=== PATIENT | female | born 1970 | race Caucasian/White ===

== ENCOUNTER 2017-10-17 18:39 | Emergency (ER) | payer SELFPAY ==
[2017-10-17] MEDS ORDERED: NS 0.9% 1000 ML* 1,000 ML IV ONE (19:46)
[2017-10-17] MEDS ORDERED: Ondansetron INJ* 2 MG/ML VIAL IV ONE (19:46)
[2017-10-17] MEDS ORDERED: Ketorolac INJ* 30 MG/ML 1 ML VIAL IV PUSH ONE (19:47)
--- NOTE | 2017-10-17 19:51 | UC ---
Headache HPI - HPI Summary HPI Summary: This is dasia Nowak documenting for attending Joce Bentley MD. This patient is a 47 year old F presenting to [facility] [place] with a chief complaint of N/ V/D and over her headache since 3 days ago. The patient rates the pain 4/10 in severity. Patient reports having bloody diarrhea, everything hurts, neck pain , difficulty breathing, abdominal pain with diarrhea, fatigue, dizziness when standing up, and dehydration. Patient denies fever, chills, chest pain, cough, and ear pain. She started occasionally having heavy periods a few years ago. Starting last October, some of these heavy periods were accompanied by these symptoms. The symptoms always alleviated after 1-2 days, but this time she has had 3 days of symptoms (she had a heavy period 3 days ago). She took ibuprofen earlier today which alleviated the symptoms for half an hour, but the symptoms returned. The patient reports that any food or drinks with flavor gives her nausea. Patient has a PMHx of anemia which was last checked 1 year ago. - History Of Current Complaint Chief Complaint: UCHeadache Stated Complaint: HEADACHE, AND DIARRHEA Time Seen by Provider: 10/17/17 19:18 Hx Obtained From: Patient Hx Last Menstrual Period: NOW Onset/Duration: Sudden Onset, Lasting Days - Since 3 days ago Onset Of Symptoms: Sudden Initially Headache Was: Moderate Currently Pain Is: Moderate Pain Intensity: 4 Pain Scale Used: 0-10 Numeric Timing: Constant Associated Signs And Symptoms: Positive: Dizziness - when standing up, Fever - Denies fever, Neck Pain, Other (Noted In Comments) - Bloody diarrhea, "everything hurts," fatigue, difficulty breathing, abdominal pain with diarrhea , and dehydration. Denies chils, denies CP, denies cough, and denies facial pain. - Allergies/Home Medications Allergies/Adverse Reactions: Allergies Allergy/AdvReac Type Severity Reaction Status Date / Time No Known Allergies Allergy Verified 10/17/17 19:04 Home Medications: Home Medications Antihistamine* PRN 10/17/17 [History] Ibuprofen TAB* [Advil TAB*] 400 mg PO PRN 10/17/17 [History] PMH/Surg Hx/FS Hx/Imm Hx Endocrine History: Diabetes - Denies diabetes Cardiovascular History: Cardiac Disease - Denies CAD, Other - anemia Other Cardiovascular History: . - Surgical History Surgical History: None - Family History Known Family History: Positive: Cardiac Disease, Diabetes, Other - Stroke - Social History Occupation: Employed Full-time - [employer] Lives: With Family Alcohol Use: None Substance Use Type: None Smoking Status (MU): Never Smoked Tobacco Review of Systems Constitutional: Fever - Denies fever, Chills - Denies chills, Fatigue, Other - "everything hurts," dehydration ENT: Ear Ache - Denies ear pain, Other - Neck pain Respiratory: Cough - Denies cough, Other - Difficulty breathing Cardiovascular: Chest Pain - Denies CP Gastrointestinal: Abdominal Pain - with diarrhea, Vomiting, Diarrhea - Bloody diarrhea, Nausea Neurological: Headache, Other - Dizziness when standing up All Other Systems Reviewed And Are Negative: Yes Physical Exam - Summary Physical Exam Summary: General: Mildly ill-appearing Skin: warm, color reflects adequate perfusion, dry Head: normal Eyes: EOMI, TIESHA ENT: normal Neck: supple, nontender Respiratory: CTA, breath sounds present Cardiovascular: RRR Abdomen: soft, nontender Bowel: present Musculoskeletal: normal, strength/ROM intact Neurological: sensory/motor intact, A&O x3 Psychological: affect/mood appropriate Triage Information Reviewed: Yes Vital Signs: Initial Vital Signs Temp 98.5 F 10/17/17 18:57 Pulse 76 10/17/17 18:57 Resp 16 10/17/17 18:57 BP 188/113 10/17/17 18:57 Pulse Ox 100 10/17/17 18:57 Headache Course/Dx - Course Course Of Treatment: IMPROVED IN CLINIC. DISCUSSED GOING TO THE EMERGENCY DEPARTMENT FOR EVALUATION AND TREATMENT; THE PATIENT DECLINED AND PREFERED TO BE TREATED HERE IN CLINIC. UNABLE TO DRAW LABS HERE IN CLINIC; OUT PATIENT LAB SLIP GIVEN. F/U WITH PMD; GO TO ED IF WORSE. - Differential Dx/Diagnosis Provider Diagnoses: HEADACHE. HEAVY MENTRAL BLEEDING. DIARRHEA Discharge - Sign-Out/Discharge Documenting (check all that apply): Patient Departure - Discharge Plan Condition: Stable Disposition: HOME Patient Education Materials: Acute Headache (ED), Ectopic (DC), Menorrhagia (ED) Referrals: [facility] [place] [facility]IAN REFERRAL [Outside] Additional Instructions: FOLLOW UP WITH YOUR DOCTOR. GET YOUR LAB WORK DRAWN TOMORROW. GO TO THE EMERGENCY DEPARTMENT FOR ANY WORSENING OF YOUR CONDITION OR QUESTIONS OR CONCERNS. - Billing Disposition and Condition Condition: STABLE Disposition: Home
[2017-10-17 22:42] VITALS: BP 140/88
--- NOTE | 2017-10-18 18:02 | UC ---
- Progress Note Progress Note: CBC, CMP, and HIV reviewed. All WNL/negative. If symptoms persisting or worsening - needs eval in the ED as instructed at visit yesterday Discharge - Sign-Out/Discharge Documenting (check all that apply): Post-Discharge Follow Up - Discharge Plan Condition: Stable Disposition: HOME Prescriptions: Ondansetron ODT TAB* [Zofran 4 MG Odt TAB*] 4 mg PO Q6H PRN #10 tab.odt PRN Reason: Nausea Patient Education Materials: Ectopic (DC), Acute Headache (ED), Menorrhagia (ED) Referrals: [facility] [place] [facility]IAN REFERRAL [Outside] Additional Instructions: FOLLOW UP WITH YOUR DOCTOR. GET YOUR LAB WORK DRAWN TOMORROW. GO TO THE EMERGENCY DEPARTMENT FOR ANY WORSENING OF YOUR CONDITION OR QUESTIONS OR CONCERNS. - Billing Disposition and Condition Condition: STABLE Disposition: Home
--- NOTE | 2017-10-19 16:32 | UC ---
- Progress Note Progress Note: Preliminary urine culture shows greater than 100,000 cfu/ml Escherichia coli. Sensitivities report is still pending. Patient should be contacted regarding symptoms once the sensitivity reports returns and appropriate course of antibiotics for UTI provided if warranted. Discharge - Sign-Out/Discharge Documenting (check all that apply): Patient Departure - Discharge Plan Condition: Stable Disposition: HOME Prescriptions: Ondansetron ODT TAB* [Zofran 4 MG Odt TAB*] 4 mg PO Q6H PRN #10 tab.odt PRN Reason: Nausea Patient Education Materials: Ectopic (DC), Acute Headache (ED), Menorrhagia (ED) Referrals: [facility] [place] [facility]IAN REFERRAL [Outside] Additional Instructions: FOLLOW UP WITH YOUR DOCTOR. GET YOUR LAB WORK DRAWN TOMORROW. GO TO THE EMERGENCY DEPARTMENT FOR ANY WORSENING OF YOUR CONDITION OR QUESTIONS OR CONCERNS. - Billing Disposition and Condition Condition: STABLE Disposition: Home
== END 2017-10-17 22:44 | disposition home or self-care (01) ==
LOC: UCEAST 18:39
DX: R51 Headache (principal); N92.0 Excessive and frequent menstruation with regular cycle; R19.7 Diarrhea, unspecified; Z82.49 Family history of ischemic heart disease and other diseases of the circulatory system; Z83.3 Family history of diabetes mellitus; Z82.3 Family history of stroke
CPT/HCPCS: 81003; 87077; 87086; 87186; 96361; 96374; 96375; 99201; G0463; J1885; J2405

== ENCOUNTER 2017-11-12 14:56 | Emergency (ER) | payer MEDICAID ==
[2017-11-12 15:10] VITALS: BP 193/114
--- NOTE | 2017-11-12 15:44 | UC ---
Headache HPI - HPI Summary HPI Summary: GRADUAL ONSET OF FRONTAL/OCCIPITAL CARPENTER, PHOTOPHOBIA AND NAUSEA SINCE 10AM TODAY. 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 BP NOTED TO BE DANGEROUSLY ELEVATED ON ARRIVAL TO . PT STATES IS WAS SIMILARLY ELEVATED AT [facility] 2 DAYS AGO. IS NOT ON BP MEDS. - History Of Current Complaint Chief Complaint: Ricky Stated Complaint: HEADACHE,NAUSEA,DIARRHEA Time Seen by Provider: 11/12/17 15:31 Hx Obtained From: Patient Hx Last Menstrual Period: 6-8 wks ago Onset/Duration: Gradual Onset, Lasting Hours, Still Present Initially Headache Was: Moderate Currently Pain Is: Moderate Pain Intensity: 8 Pain Scale Used: 0-10 Numeric Timing: Constant Character: Dull, Throbbing Location of Headache: Diffuse Aggravating Factor(s): Bright Lights Allevating Factor(s): Nothing Associated Signs And Symptoms: Positive: Nausea - Allergies/Home Medications Allergies/Adverse Reactions: Allergies Allergy/AdvReac Type Severity Reaction Status Date / Time No Known Allergies Allergy Verified 11/12/17 15:10 PMH/Surg Hx/FS Hx/Imm Hx Neurological History: Migraine Other Neurological History: CHRONIC NOLEN'S PALSY SINCE ~AGE 21 - Surgical History Surgical History: None - Family History Known Family History: Positive: Cardiac Disease, Diabetes, Other - Stroke - Social History Alcohol Use: None Substance Use Type: None Smoking Status (MU): Never Smoked Tobacco Review of Systems Constitutional: Negative Respiratory: Negative Cardiovascular: Palpitations Gastrointestinal: Nausea Neurological: Headache All Other Systems Reviewed And Are Negative: Yes Physical Exam Triage Information Reviewed: Yes Appearance: Well-Nourished, Pain Distress - SEVERE Vital Signs: Initial Vital Signs Temp 98.7 F 11/12/17 15:05 Pulse 74 11/12/17 15:05 Resp 12 11/12/17 15:05 BP 193/114 11/12/17 15:05 Pulse Ox 100 11/12/17 15:05 Vital Signs Reviewed: Yes Eyes: Positive: Conjunctiva Clear, Other: - PERRL, EOMI ENT: Positive: Hearing grossly normal Neck: Positive: Supple Respiratory Exam: Normal Cardiovascular Exam: Normal Abdomen Description: Positive: Nontender, Soft Musculoskeletal: Positive: No Edema Neurological: Positive: Alert, Other: - LEFT FACIAL WEAKNESS Psychological: Positive: Normal Response To Family, Age Appropriate Behavior Skin: Negative: rashes Diagnostics - EKG Cardiac Rate: NL - 73BPM Cardiac Rhythm: Sinus: Normal Ectopy: None ST Segment: Normal Headache Course/Dx - Course Course Of Treatment: TO [facility] BY AMBULANCE - Differential Dx/Diagnosis Provider Diagnoses: HEADACHE IN SETTING OF HYPERTENSIVE CRISIS - Physician Notifications Discussed Patient Care With: Nestor Razo - TO [facility] BY AMBULANCE Time Discussed With Above Provider: 15:45 Instructed by Provider To: MD Will See In ED Discharge - Sign-Out/Discharge Documenting (check all that apply): Patient Departure All imaging exams completed and their final reports reviewed: No Studies - Discharge Plan Condition: Stable Disposition: TRANS HIGHER LVL OF CARE FAC Referrals: No Primary Care Phys,NOPCP [Primary Care Provider] - - Billing Disposition and Condition Condition: STABLE Disposition: Trans Higher Lvl of Care Fac
[2017-11-12] MEDS ORDERED: Ondansetron INJ* 2 MG/ML VIAL IV ONE (15:53)
[2017-11-12] MEDS ORDERED: Morphine VIAL* 10 MG/ML 1 ML VIAL IV PRN (15:54)
[2017-11-12] MEDS ORDERED: NS 0.9% 1000 ML* 1,000 ML IV SCH (16:00)
== END 2017-11-12 16:15 | disposition short-term general hospital (02) ==
LOC: UCEAST 14:56
DX: R51 Headache (principal); I16.9 Hypertensive crisis, unspecified; H53.149 Visual discomfort, unspecified; R19.7 Diarrhea, unspecified; G51.0 Bell's palsy
CPT/HCPCS: 93005; 96374; 96375; 99213; G0463; J2270; J2405

== ENCOUNTER 2017-11-12 16:29 | Emergency (ER) | payer MEDICAID ==
[2017-11-12] MEDS ORDERED: diPHENhydraMINE IV* 50 MG/ML 1 ml VIAL (BENADRYL) IV ONE (17:16)
[2017-11-12] MEDS ORDERED: NS 0.9% 1000 ML* 1,000 ML IV ONE (17:16)
--- NOTE | 2017-11-12 17:16 | ED ---
Headache - HPI Summary HPI Summary: The pt is a 47 y/o female with a MHx of migraines BIBA to [facility] c/o a CARPENTER since 10:00 today morning. She measured her BP at [employer] and it reached 180 at the highest. The sharp pain rated 4/10 in severity, is aggravated by light and sound. She notes nausea, L upper CP, palpitations, and photophobia but denies SOB, and ear pain. The pt took Ibuprofen, morphine 2mg, Zofran 4mg en route. She also reports a hx of [place] Palsy (weakness of the L side), anemia and undedicated HTN. - History Of Current Complaint Chief Complaint: EDHypertension Stated Complaint: HEADACHE/HIGH BP Time Seen by Provider: 11/12/17 17:08 Hx Obtained From: Patient Hx Last Menstrual Period: 6-8 wks ago Onset/Duration: Sudden Onset, Still Present Currently Pain Is: Current Pain Scale(0-10)= - 4/10 Character: Sharp Location of Headache: Diffuse Aggravating Factor: Bright Lights, Other - Loud noises Allevating Factors: Nothing Associated Signs And Symptoms: Negative - SOB, and ear pain, Nausea, Other ( Noted In Comments) - Positive: L upper CP, palpitations, and photophobia - Allergies/Home Medications Allergies/Adverse Reactions: Allergies Allergy/AdvReac Type Severity Reaction Status Date / Time No Known Allergies Allergy Verified 11/12/17 15:10 Home Medications: Home Medications NK [No Home Medications Reported] 11/12/17 [History Confirmed 11/12/17] PMH/Surg Hx/FS Hx/Imm Hx Previously Healthy: No Endocrine/Hematology History: Reports: Hx Anemia Cardiovascular History: Reports: Hx Hypertension - Unmedicated Neurological History: Reports: Hx Migraine, 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 - Cancer History Cancer Type, Location and Year: None - Surgical History Surgery Procedure, Year, and Place: None - Immunization History Date of Tetanus Vaccine: < 10 years Immunizations Up to Date: Yes Infectious Disease History: No Infectious Disease History: Denies: Traveled Outside the [place] in Last 30 Days - Family History Known Family History: Positive: Cardiac Disease, Diabetes, Other - Stroke - Social History Occupation: Employed Full-time Lives: With Family Alcohol Use: None Substance Use Type: Reports: None Smoking Status (MU): Never Smoked Tobacco Review of Systems Positive: Photophobia Negative: Ear Ache Positive: Palpitations, Chest Pain - L upper side Negative: Shortness Of Breath Positive: Nausea Positive: Headache All Other Systems Reviewed And Are Negative: Yes Physical Exam - Summary Physical Exam Summary: Appearance: Well appearing, no pain distress Skin: warm, dry, reflects adequate perfusion Head/face: normal Eyes: EOMI, TIESHA ENT: normal Neck: supple, non-tender Respiratory: CTA, breath sounds present Cardiovascular: RRR, pulses symmetrical Abdomen: non-tender, soft Bowel: present Musculoskeletal: normal, strength/ROM intact Neuro: normal, sensory motor intact, A&Ox3 GCS: 15 Triage Information Reviewed: Yes Vital Signs On Initial Exam: Initial Vitals Temp Pulse Resp BP Pulse Ox 99.1 F 72 18 203/111 100 11/12/17 16:39 11/12/17 16:39 11/12/17 16:39 11/12/17 16:39 11/12/17 16:39 Vital Signs Reviewed: Yes Diagnostics - Vital Signs Vital Signs Temp Pulse Resp BP Pulse Ox 11/12/17 16:39 99.1 F 72 18 203/111 100 - Laboratory Result Diagrams: 11/12/17 17:58 11/12/17 17:58 Lab Statement: Any lab studies that have been ordered have been reviewed, and results considered in the medical decision making process. - CT Brain CT CT Interpretation Completed By: Radiologist - IMPRESSION: #. Negative unenhanced head CT. The ED physician reviewed this radiology report. Headache Course/Dx - Course Course Of Treatment: A 47 year-old F presents to the ED with a CC of a CARPENTER since 10:00 today morning. She measured her BP at [employer] and it reached 180 at the highest. The sharp pain rated 4/10 in severity, is aggravated by light and sound. She notes nausea, L upper CP, palpitations, and photophobia but denies SOB, and ear pain. The pt took Ibuprofen, morphine 2mg, Zofran 4mg en route. She also reports a hx of [place] Palsy (weakness of the L side), anemia and undedicated HTN. A physical exam is unremarkable. A brain CT in unremarkable In the ED course, pt was given Diphenhydramine 50mh IV, Ns 0.9% 1000ml and Metoclopramide 10mg IV which improved the symptoms. Patient will be discharged with a final Dx of CARPENTER and HTN. The pt is agreeable with this plan. Allergies noted. - Diagnoses Differential Diagnosis/HQI/PQRI: Migraine, Sinus Headache, Tension Headache Provider Diagnoses: Headache, Hypertension Discharge - Sign-Out/Discharge Documenting (check all that apply): Patient Departure - DC - Discharge Plan Condition: Improved Disposition: HOME Referrals: No Primary Care Phys,NOPCP [Primary Care Provider] - [facility] [Outside] Additional Instructions: Follow up with PCP in 3 days. Return to ED for any new or worsening symptoms - Billing Disposition and Condition Condition: IMPROVED Disposition: Home - Attestation Statements Document Initiated by Scribe: Yes Documenting Scribe: Kaci Rahman Provider For Whom Nereyda is Documenting (Include Credential): Dr. Nestro Razo MD Scribe Attestation: Kaci Rose , scribed for Dr. Nestor Razo MD on 11/12/17 at 1844. Scribe Documentation Reviewed: Yes Provider Attestation: The documentation as recorded by the Kaci forman accurately reflects the service I personally performed and the decisions made by me, Dr. Nestor Razo MD
[2017-11-12] MEDS ORDERED: Metoclopramide IV* 5 MG/ML 2 ML VIAL IV ONE (17:22)
--- NOTE | 2017-11-12 17:54 | RAD ---
Indication: Headache with progression since this morning. Reported elevated blood pressure. Comparison: No relevant prior exams available on the [facility] for comparison. Technique: Noncontrast CT vertex of skull through foramen magnum. Report: The sulci, ventricles, and basal cisterns are normal for age. Santos matter white matter differentiation is preserved without evidence for edema. No intra or extra axial hemorrhage, mass, or fluid collection detected. Unremarkable visualized orbital contents. Unremarkable calvarium and skull base. Unremarkable scalp. The visualized paranasal sinuses and mastoid air spaces are clear. IMPRESSION: #. Negative unenhanced head CT.
[2017-11-12 18:05] LABS: ABS Basophils 0.1 10^3/ul (0-0.2); ABS Eosinophils 0.1 10^3/ul (0-0.6); ABS Lymphocytes 1.5 10^3/ul (1.0-4.8); ABS Monocytes 0.6 10^3/ul (0-0.8); ABS Neutrophils 5.7 10^3/ul (1.5-7.7); ABS Nucleated RBC 0 10^3/ul; Eosinophil % 0.8 % (0-6); Hematocrit 36 % (35-47); Hemoglobin 11.5 g/dl (12.0-16.0); Lymphocyte % 19.2 % (25-47); Mean Corpuscular HGB Conc 32 g/dl (31-36); Mean Corpuscular Hemoglobin 25 pg (27-31); Mean Corpuscular Volume 80 fL (80-97); Mean Platelet Volume 12.6 um3 (7.4-10.4); Nucleated Red Blood Cells % 0; Platelet Count 165 10^3/ul (150-450); Red Blood Count 4.55 10^6/ul (4.00-5.40); Red Cell Distribution Width 17 % (10.5-15)
[2017-11-12 18:12] LABS: INR 0.9 (0.77-1.02)
[2017-11-12] MEDS ORDERED: hydrALAZINE IV* 20 MG/ML VIAL IV SLOW PU ONE (18:43)
[2017-11-12] MEDS ORDERED: Lisinopril TAB* 5 MG PO ONE (19:01)
--- NOTE | 2017-11-12 19:38 | ED ---
Progress - Progress Note Progress Note: 1908 - EKG results came back normal. 1999 - Pt's blood pressure is stable, pt will be discharged home. - EKG/XRAY/CT EKG: NSR - 67bpm Course/Dx - Diagnoses Provider Diagnoses: Migraine headache Discharge - Sign-Out/Discharge Documenting (check all that apply): Patient Departure, Receiving Sign-Out Receiving patient FROM: Nestor Razo - Discharge Plan Condition: Stable Disposition: HOME Referrals: Care [facility] [Outside] No Primary Care Phys,NOPCP [Primary Care Provider] - Additional Instructions: Follow up with PCP in 3 days. Return to ED for any new or worsening symptoms - Attestation Statements Document Initiated by Scribe: Yes Documenting Scribe: Kelli Quach Provider For Whom Scribe is Documenting (Include Credential): Bradley Avila MD. Scribe Attestation: Kelli Rose, scribed for Bradley Avila MD. on 11/12/17 at 2210.
[2017-11-12] MEDS ORDERED: Ondansetron ODT TAB* 4 MG PO ONE (21:59)
--- NOTE | 2017-11-12 22:06 | ED ---
Progress - Progress Note Progress Note: 1908 - EKG results came back normal. 1999 - Pt's blood pressure is stable, pt will be discharged home. - EKG/XRAY/CT EKG: NSR - 67bpm Re-Evaluation - Re-Evaluation First Eval Re-Evaluation Time: 22:07 Change: Improved - This is a 47-year-old woman who came in today with severe headache associated with marked elevation of blood pressure. She was initially treated by Dr. Razo and signed out to me. In the interim, her blood pressure has come down with IV and oral medication. Her headache has been controlled although she is still complaining of some nausea. I ordered some medication for that. I went through her history in some detail with her and she appears to be suffering from migraine headaches which tend to occur with her., Characterized by gradual onset of severe frontal and temporal pain bilaterally associated with nausea and vomiting. Sometimes she does see funny lights with this. She also sometimes gets diarrhea with it. I think she might benefit from a trial of Imitrex and explained that she should take that at the very first onset of symptoms. With respect to her blood pressure and I can start her on an antihypertensive as I suspect this blood pressure was reactive to her symptoms; she says sometimes she does check her blood pressure in the [place] and it tends to run in the 04/13/40 systolic range. Course/Dx - Course Course Of Treatment: A 47 year-old F presents to the ED with a CC of a CARPENTER since 10:00 today morning. She measured her BP at [employer] and it reached 180 at the highest. The sharp pain rated 4/10 in severity, is aggravated by light and sound. She notes nausea, L upper CP, palpitations, and photophobia but denies SOB, and ear pain. The pt took Ibuprofen, morphine 2mg, Zofran 4mg en route. She also reports a hx of [place] Palsy (weakness of the L side), anemia and undedicated HTN. A physical exam is unremarkable. A brain CT in unremarkable In the ED course, pt was given Diphenhydramine 50mh IV, Ns 0.9% 1000ml and Metoclopramide 10mg IV which improved the symptoms. Patient will be discharged with a final Dx of CARPENTER and HTN. The pt is agreeable with this plan. Allergies noted. - Diagnoses Provider Diagnoses: Migraine headache Discharge - Sign-Out/Discharge Documenting (check all that apply): Patient Departure - Discharge Plan Condition: Improved Disposition: HOME Prescriptions: Prochlorperazine TAB* [Compazine Tab*] 10 mg PO Q6H PRN #12 tab PRN Reason: Nausea SUMAtriptan TAB* [Imitrex TAB*] 50 mg PO SEE INSTRUCTIONS PRN #8 tab PRN Reason: Headache Patient Education Materials: Migraine Headache (ED) Referrals: Care [facility] [Outside] No Primary Care Phys,NOPCP [Primary Care Provider] - Additional Instructions: Follow up with PCP in 3 days. Return to ED for any new or worsening symptoms - Billing Disposition and Condition Condition: IMPROVED Disposition: Home - Attestation Statements Document Initiated by Nereyda: Liliya
[2017-11-12 22:31] VITALS: BP 160/81
== END 2017-11-12 22:29 | disposition home or self-care (01) ==
LOC: ED 16:29
DX: R51 Headache (principal); I10 Essential (primary) hypertension; Z86.69 Personal history of other diseases of the nervous system and sense organs; Z86.2 Personal history of diseases of the blood and blood-forming organs and certain disorders involving the immune mechanism
CPT/HCPCS: 36415; 70450; 80053; 84484; 84702; 85025; 85610; 85730; 93005; 96361; 96374; 96375; 99284; A9270-GY; J0360; J1200; J2765

== ENCOUNTER 2018-01-07 18:36 | Emergency (ER) | payer OTHER ==
[2018-01-07 18:48] VITALS: BP 151/89
[2018-01-07] MEDS ORDERED: Aspirin 81 mg CHEW TAB* 81 MG TAB.CHEW PO ONE (19:05)
--- NOTE | 2018-01-07 19:20 | UC ---
Cardiac HPI - HPI Summary HPI Summary: had chest and left arm discomfort a few days ago seen pcp ---our patient stress test ordered--and patient advised should sx return to "get checked out"--pain comes on when standing and working goes away with rest---never feel SOB or nauseated---currently has burning in left upper arm - History of Current Complaint Chief Complaint: UCChestPain Stated Complaint: CHEST PAIN Time Seen by Provider: 01/07/18 18:58 Hx Obtained From: Patient Hx Last Menstrual Period: october irregular unkown why Onset/Duration: Sudden Onset Timing: Constant Pain Intensity: 6 Chest Pain Location: Left Lateral - and left upper arm Character: Burning Aggravating Factor(s): Exertion Alleviating Factor(s): Rest Associated Signs & Symptoms: Positive: Negative - Allergy/Home Medications Allergies/Adverse Reactions: Allergies Allergy/AdvReac Type Severity Reaction Status Date / Time No Known Allergies Allergy Verified 11/12/17 15:10 PMH/Surg Hx/FS Hx/Imm Hx Previously Healthy: No Cardiovascular History: Hypertension - Surgical History Surgical History: None Surgery Procedure, Year, and Place: None - Family History Known Family History: Positive: Cardiac Disease, Diabetes, Other - Stroke - Social History Occupation: Employed Full-time Lives: With Family Alcohol Use: Rare Substance Use Type: None Smoking Status (MU): Never Smoked Tobacco Household Exposure Type: Cigarettes Review of Systems Constitutional: Negative Skin: Negative Eyes: Negative ENT: Negative Respiratory: Negative Cardiovascular: Chest Pain - and left upper arm burning Gastrointestinal: Negative Genitourinary: Negative Motor: Negative Neurovascular: Negative Musculoskeletal: Negative Neurological: Negative Psychological: Negative Is Patient Immunocompromised?: No All Other Systems Reviewed And Are Negative: Yes Physical Exam Triage Information Reviewed: Yes Appearance: Well-Appearing, No Pain Distress, Well-Nourished Vital Signs: Initial Vital Signs Temp 98.2 F 01/07/18 18:40 Pulse 70 01/07/18 18:40 Resp 18 01/07/18 18:40 BP 151/89 01/07/18 18:40 Pulse Ox 100 01/07/18 18:40 Vital Signs Reviewed: Yes Eye Exam: Normal Eyes: Positive: Conjunctiva Clear ENT Exam: Normal ENT: Positive: Normal ENT inspection, Hearing grossly normal. Negative: Trismus , Muffled voice, Hoarse voice Dental Exam: Normal Neck exam: Normal Neck: Positive: Supple, Nontender, No Lymphadenopathy Respiratory Exam: Normal Respiratory: Positive: Chest non-tender, Lungs clear, Normal breath sounds, No respiratory distress, No accessory muscle use Cardiovascular Exam: Normal Cardiovascular: Positive: RRR, No Murmur, Pulses Normal, Brisk Capillary Refill Musculoskeletal Exam: Normal Musculoskeletal: Positive: Strength Intact, ROM Intact, No Edema Neurological Exam: Normal Neurological: Positive: Alert, Muscle Tone Normal Psychological Exam: Normal Skin Exam: Normal Diagnostics - EKG Cardiac Rate: NL Cardiac Rhythm: Sinus: Normal Ectopy: None ST Segment: Normal Summary of EKG Findings: sr rate [address] changes - Assessment/Plan Course Of Treatment: refused EMS---4-81 mg asa to chew given patient driven to hospital by male patner - Differential Diagnoses - Chest Pain Differential Diagnosis/HQI/PQRI: Angina - Clinical Impression Provider Diagnoses: Chest pain Discharge - Sign-Out/Discharge Documenting (check all that apply): Patient Departure All imaging exams completed and their final reports reviewed: No Studies - Discharge Plan Condition: Guarded Disposition: HOME-RECOMMEND TO ED Patient Education Materials: Chest Pain (ED) Referrals: Mari Ji MD [Primary Care Provider] - - Billing Disposition and Condition Condition: GUARDED Disposition: Home-Recommend to ED
== END 2018-01-07 19:15 | disposition home health service (06) ==
LOC: UCEAST 18:36
DX: R07.9 Chest pain, unspecified (principal); I10 Essential (primary) hypertension
CPT/HCPCS: 93005; 99212; A9270-GY; G0463

== ENCOUNTER → 2018-02-24 05:46 | Day surgery (SDC) | payer OTHER ==
[~2018-02-24 05:46] MED LIST: Buffered Lidocaine 0.9% SYRIN* 5 ML/SYR SYRINGE INTRADERM ONE; Dexamethasone IV* 4 MG/ML 1 ML (4 MG) IV SLOW PU ONE; Dexamethasone IV* 4 MG/ML 1 ML (4 MG) ONE; DiMENhydriNATE IV* 50 MG/ML VIAL IV PUSH PRN; EPHEDrine (Pressors)* 50 MG/ML VIAL ONE; Famotidine IV* 10 MG/ML 2 ML (20 mg) IV ONE; Famotidine IV* 10 MG/ML 2 ML (20 mg) ONE; Ketorolac INJ* 30 MG/ML 1 ML VIAL ONE; Lactated Ringers 1000 ML Bag* 1,000 ML IV SCH; Lidocaine 2% PF * 5 ML VIAL ONE; Midazolam* 1 MG/ML 5 ML VIAL (5 MG) ONE; Naloxone* 0.4 MG/ML 1 ML VIAL IV PRN; Ondansetron INJ* 2 MG/ML VIAL IV PRN; Ondansetron INJ* 2 MG/ML VIAL ONE; Propofol* 10 MG/ML 20 ML BTL ONE; Silver Nitrate/Potassium Nitr* 1 EA STICK ONE; ceFAZolin 2 GM PREMIX in ORs 2 GM/50 ML BAG IVPB ONE; fentaNYL* 50 MCG/ML 2 ML VIAL (100 MCG VIAL) IV PRN; fentaNYL* 50 MCG/ML 5 ML VIAL (250 MCG VIAL) ONE; oxyCODONE/Acetamin 5/325 MG* TAB PO PRN
[2018-02-24 06:58] LABS: Hematocrit 41 % (35-47); Hemoglobin 13.4 g/dl (12.0-16.0); Mean Corpuscular HGB Conc 33 g/dl (31-36); Mean Corpuscular Hemoglobin 28 pg (27-31); Mean Corpuscular Volume 85 fL (80-97); Mean Platelet Volume 12.8 fL (7.4-10.4); Platelet Count 172 10^3/ul (150-450); Red Blood Count 4.74 10^6/ul (4.00-5.40); Red Cell Distribution Width 16 % (10.5-15); White Blood Count 6.1 10^3/ul (3.5-10.8)
[2018-02-24 10:40] VITALS: BP 126/78
--- NOTE | 2018-02-24 22:04 | OP ---
CC: Dr. Pocne, [facility].* DATE OF OPERATION: 02/24/18 - [facility] DATE OF : 72 SURGEON: Dr. Ponce. ANESTHESIOLOGIST: Dr. Tubbs. ANESTHESIA: General endotracheal anesthesia. PRE-OP DIAGNOSES: 1. Irregular vaginal bleeding. 2. Menorrhagia. 3. Thickened endometrium on ultrasound. 4. Nabothian cyst on cervix. POST-OP DIAGNOSES: 1. Irregular vaginal bleeding. 2. Menorrhagia. 3. Second endometrium on ultrasound. 4. Nabothian cyst on cervix. OPERATIVE PROCEDURE: Dilation, hysteroscopy, MyoSure polypectomy, curettage, cauterization of nabothian cyst. ESTIMATED BLOOD LOSS: Minimal, less than 20 cc. SPECIMEN: Endometrial polyps and endometrial curettings. FLUIDS: Per Anesthesia. Deficit 220 cc. FINDINGS: Small anteverted uterus, 1 cm nabothian cyst just inside the external os deviates the endocervical canal slightly to the left. Uterus sounds to 7. There were two small anterior wall polyps. There was otherwise atrophic-appearing endometrium. Adnexal masses were not palpated. Both ostia were visualized. COMPLICATIONS: None. COUNTS: Sponge, lap, and needle counts were correct x2. The patient was brought to recovery room awake and in stable condition. DESCRIPTION OF PROCEDURE: The patient was brought to the operating room. When general anesthesia was found to be adequate, the patient was prepped and draped in the usual sterile fashion in the dorsal lithotomy position. Exam under anesthesia was performed with the above findings noted. The weighted speculum was placed in the vagina. The anterior lip of the cervix was grasped with a single-tooth tenaculum and the cervix was gently and easily dilated with the graduated Hegar dilators. The MyoSure scope was introduced with the above findings noted. The MyoSure light was used to remove two polyps from the anterior uterine wall. When they were removed, no further polyps were seen. Endometrial curettage was performed. The nabothian cyst was cauterized with the Bovie in an attempt to make it smaller. All instruments removed from the vagina. The patient tolerated the procedure well and was brought to the recovery room awake and in stable condition. [id number]/[facility] #: [id number] [facility]
== END | disposition home or self-care (01) ==
LOC: OR 05:46
PROVIDERS: ATTEND Obstetrics & Gynecology
DX: N92.1 Excessive and frequent menstruation with irregular cycle (principal); N84.1 Polyp of cervix uteri; N84.0 Polyp of corpus uteri; I10 Essential (primary) hypertension; G51.0 Bell's palsy
CPT/HCPCS: 36415; 81025; 85027; 86850; 86900; 86901; 88305; A9270-GY; J0690; J1100; J1885; J2250; J2405; J2704; J3010

== ENCOUNTER 2018-08-02 15:54 | Observation (INO) | payer OTHER ==
[2018-08-02 18:28] LABS: ABS Basophils 0.1 10^3/ul (0-0.2); ABS Eosinophils 0.1 10^3/ul (0-0.6); ABS Lymphocytes 2.2 10^3/ul (1.0-4.8); ABS Monocytes 0.9 10^3/ul (0-0.8); ABS Neutrophils 5.6 10^3/ul (1.5-7.7); Eosinophil % 1.7 %; Hematocrit 46 % (35-47); Hemoglobin 15.3 g/dL (12.0-16.0); Lymphocyte % 24.7 %; Mean Corpuscular HGB Conc 34 g/dL (31-36); Mean Corpuscular Hemoglobin 30 pg (27-31); Mean Corpuscular Volume 89 fL (80-97); Mean Platelet Volume 11.6 fL (7.4-10.4); Nucleated Red Blood Cells % 0.1; Platelet Count 196 10^3/uL (150-450); Red Blood Count 5.14 10^6 /uL (3.70-4.87); Red Cell Distribution Width 14 % (10.5-15); White Blood Count 8.8 10^3/uL (3.5-10.8)
[2018-08-02 18:48] LABS: ALT 38 U/L (7-52); AST 24 U/L (13-39); Albumin 4.3 g/dL (3.2-5.2); Albumin/Globulin Ratio 1.3 (1-3); Alkaline Phosphatase 63 U/L (34-104); Anion Gap 8 mmol/L (2-11); Blood Urea Nitrogen 16 mg/dL (6-24); C Reactive Protein 1.73 mg/L (<8.01); CO2 Carbon Dioxide 25 mmol/L (22-32); Calcium 9.6 mg/dL (8.6-10.3); Chloride 104 mmol/L (101-111); EGFR African American 87.9 (>60); EGFR Non-African American 72.7 (>60); Globulin 3.4 g/dL (2-4); Glucose 86 mg/dL (70-100); Potassium 4.4 mmol/L (3.5-5.0); Sodium 137 mmol/L (135-145); Total Protein 7.7 g/dL (6.4-8.9)
[2018-08-02 18:52] LABS: HCG Pregnancy < 0.60 mIU/mL
[2018-08-02 19:49] LABS: Urine Appearance Cloudy; Urine Bacteria Absent (Absent); Urine Bilirubin Negative (Negative); Urine Blood Negative (Negative); Urine Color Yellow; Urine Glucose Negative (Negative); Urine Ketones Negative (Negative); Urine Nitrite Negative (Negative); Urine Protein Negative (Negative); Urine Red Blood Cell Trace(0-2/hpf) (Absent); Urine Specific Gravity 1.008 (1.010-1.030); Urine Squamous Epithelial Cell Present (Absent); Urine Urobilinogen Negative (Negative); Urine White Blood Cell Trace(0-5/hpf) (Absent)
--- NOTE | 2018-08-02 20:15 | ED ---
Abdominal Pain/Female - HPI Summary HPI Summary: 48-year-old female presents with complaints of lower mid abdominal and right lower quadrant "burning" for the past 2 days. States she was seen by her primary care provider earlier today who recommended that she be seen in the emergency room for further evaluation. Describes pain as constant. Denies aggravating or alleviating factors. Associated with some mild nausea. She reports she had surgery for a cyst removal from her uterus in January 2018 and had some similar discomfort following that surgery. States she has an appointment with her FISH AND WILDLIFE TECHNICIAN next week for follow-up. Patient also notes some dysuria, frequency, and urgency. States has not had her period since her surgery in January. Denies fever, chills, vomiting, diarrhea, vaginal discharge , or dyspareunia. - History of Current Complaint Chief Complaint: EDAbdPain Stated Complaint: ABD PAIN PER PT Time Seen by Provider: 08/02/18 17:47 Hx Obtained From: Patient Hx Last Menstrual Period: october irregular unkown why Pain Intensity: 6 Allergies/Adverse Reactions: Allergies Allergy/AdvReac Type Severity Reaction Status Date / Time No Known Allergies Allergy Verified 02/24/18 06:22 PMH/Surg Hx/FS Hx/Imm Hx Endocrine/Hematology History: Reports: Hx Anemia Denies: Hx Diabetes, Hx Thyroid Disease Cardiovascular History: Reports: Hx Hypertension - Unmedicated , Other Cardiovascular Problems/Disorders - shingles 3 yrs ago, left sided nerve damage Respiratory History: Denies: Hx Asthma, Hx Chronic Obstructive Pulmonary Disease (COPD), Other Respiratory Problems/Disorders GI History: Reports: Hx Gastroesophageal Reflux Disease - and gastritis, Hx Irritable Bowel Denies: Hx Ulcer, Other GI Disorders Musculoskeletal History: Reports: 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 Denies: Other Musculoskeletal History Sensory History: Denies: Hx Contacts or Glasses, Hx Hearing Aid Opthamlomology History: Denies: Hx Contacts or Glasses Neurological History: Reports: Hx Headaches, Hx Migraine, Hx Nerve Disease, 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 Psychiatric History: Reports: Hx Anxiety - after , Hx Depression - in the past - Cancer History Cancer Type, Location and Year: None - Surgical History Surgery Procedure, Year, and Place: None Hx Anesthesia Reactions: No - Immunization History Date of Tetanus Vaccine: < 10 years Infectious Disease History: No Infectious Disease History: Denies: Hx Hepatitis, Hx Human Immunodeficiency Virus (HIV), Traveled Outside the [place] in Last 30 Days - Family History Known Family History: Positive: Cardiac Disease, Diabetes, Other - Stroke - Social History Occupation: Employed Full-time Lives: With Family Alcohol Use: Rare Substance Use Type: Reports: None Smoking Status (MU): Never Smoked Tobacco Review of Systems Negative: Fever, Chills Cardiovascular: Negative Respiratory: Negative Positive: Abdominal Pain, Nausea. Negative: Vomiting, Diarrhea Positive: dysuria, frequency, urgency. Negative: discharge, flank pain, hematuria Musculoskeletal: Negative Skin: Negative Neurological: Negative All Other Systems Reviewed And Are Negative: No Physical Exam - Summary Physical Exam Summary: GENERAL APPEARANCE: Well developed, well nourished, alert and cooperative, and appears to be in no acute distress. EYES: Conjunctiva clear. No drainage. PERRL, EOM intact. Vision is grossly intact. EARS: External auditory canals and tympanic membranes clear, hearing grossly intact. NOSE: No nasal discharge. THROAT: Pharynx normal No tonsilar inflammation, swelling, exudate, or lesions. Uvula midline. Oral cavity normal. Teeth and gingiva in good general condition. NECK: Neck supple, non-tender without lymphadenopathy. CARDIAC: Normal S1 and S2. No S3, S4 or murmurs. Rhythm is regular. There is no peripheral edema, cyanosis or pallor. Extremities are warm and well perfused. Capillary refill is less than 2 seconds. Peripheral pulses intact. LUNGS: Clear to auscultation without rales, rhonchi, wheezing or diminished breath sounds. ABDOMEN: Positive bowel sounds. Soft, nondistended. Mild suprapubic and RLQ tenderness without guarding or rebound. No masses or hepatosplenomegally. No CVA tenderness. MUSKULOSKELETAL: ROM intact to all extremities. No joint erythema or tenderness. Normal muscular development. Normal gait. SKIN: Skin normal color, texture and turgor with no lesions or eruptions. Triage Information Reviewed: Yes Vital Signs On Initial Exam: Initial Vitals Temp Pulse Resp BP Pulse Ox 97.8 F 75 18 147/94 100 08/02/18 15:57 08/02/18 15:57 08/02/18 15:57 08/02/18 15:57 08/02/18 15:57 Vital Signs Reviewed: Yes Diagnostics - Vital Signs Vital Signs Temp Pulse Resp BP Pulse Ox 08/02/18 15:57 97.8 F 75 18 147/94 100 - Laboratory Lab Results: Lab Results 08/02/18 08/02/18 08/02/18 Range/Units 18:10 18:10 18:10 WBC 8.8 (3.5-10.8) 10^3/uL RBC 5.14 H (3.70-4.87) 10^6 /uL Hgb 15.3 (12.0-16.0) g/dL Hct 46 (35-47) % MCV 89 (80-97) fL MCH 30 (27-31) pg MCHC 34 (31-36) g/dL RDW 14 (10.5-15) % Plt Count 196 (150-450) 10^3/uL MPV 11.6 H (7.4-10.4) fL Neut % (Auto) 62.9 % Lymph % (Auto) 24.7 % Crawford % (Auto) 10.0 % Eos % (Auto) 1.7 % Baso % (Auto) 0.7 % Absolute Neuts (auto) 5.6 (1.5-7.7) 10^3/ul Absolute Lymphs (auto) 2.2 (1.0-4.8) 10^3/ul Absolute Monos (auto) 0.9 H (0-0.8) 10^3/ul Absolute Eos (auto) 0.1 (0-0.6) 10^3/ul Absolute Basos (auto) 0.1 (0-0.2) 10^3/ul Absolute Nucleated RBC 0.0 10^3/ul Nucleated RBC % 0.1 Sodium 137 (135-145) mmol/L Potassium 4.4 (3.5-5.0) mmol/L Chloride 104 (101-111) mmol/L Carbon Dioxide 25 (22-32) mmol/L Anion Gap 8 (2-11) mmol/L BUN 16 (6-24) mg/dL Creatinine 0.84 (0.51-0.95) mg/dL Est GFR ( Amer) 87.9 (>60) Est GFR (Non-Af Amer) 72.7 (>60) BUN/Creatinine Ratio 19.0 (8-20) Glucose 86 (70-100) mg/dL Lactic Acid 0.9 (0.5-2.0) mmol/L Calcium 9.6 (8.6-10.3) mg/dL Total Bilirubin 0.40 (0.2-1.0) mg/dL AST 24 (13-39) U/L ALT 38 (7-52) U/L Alkaline Phosphatase 63 (34-104) U/L C-Reactive Protein 1.73 (<8.01) mg/L Total Protein 7.7 (6.4-8.9) g/dL Albumin 4.3 (3.2-5.2) g/dL Globulin 3.4 (2-4) g/dL Albumin/Globulin Ratio 1.3 (1-3) Lipase 21 (11.0-82.0) U/L Beta HCG, Quant < 0.60 mIU/mL Urine Color Urine Appearance Urine pH (5-9) Ur Specific [place] (1.010-1.030) Urine Protein (Negative) Urine Ketones (Negative) Urine Blood (Negative) Urine Nitrate (Negative) Urine Bilirubin (Negative) Urine Urobilinogen (Negative) Ur Leukocyte Esterase (Negative) Urine WBC (Auto) (Absent) Urine RBC (Auto) (Absent) Ur Squamous Epith Cells (Absent) Urine Bacteria (Absent) Urine Glucose (Negative) 08/02/18 Range/Units 19:25 WBC (3.5-10.8) 10^3/uL RBC (3.70-4.87) 10^6 /uL Hgb (12.0-16.0) g/dL Hct (35-47) % MCV (80-97) fL MCH (27-31) pg MCHC (31-36) g/dL RDW (10.5-15) % Plt Count (150-450) 10^3/uL MPV (7.4-10.4) fL Neut % (Auto) % Lymph % (Auto) % Crawford % (Auto) % Eos % (Auto) % Baso % (Auto) % Absolute Neuts (auto) (1.5-7.7) 10^3/ul Absolute Lymphs (auto) (1.0-4.8) 10^3/ul Absolute Monos (auto) (0-0.8) 10^3/ul Absolute Eos (auto) (0-0.6) 10^3/ul Absolute Basos (auto) (0-0.2) 10^3/ul Absolute Nucleated RBC 10^3/ul Nucleated RBC % Sodium (135-145) mmol/L Potassium (3.5-5.0) mmol/L Chloride (101-111) mmol/L Carbon Dioxide (22-32) mmol/L Anion Gap (2-11) mmol/L BUN (6-24) mg/dL Creatinine (0.51-0.95) mg/dL Est GFR ( Amer) (>60) Est GFR (Non-Af Amer) (>60) BUN/Creatinine Ratio (8-20) Glucose (70-100) mg/dL Lactic Acid (0.5-2.0) mmol/L Calcium (8.6-10.3) mg/dL Total Bilirubin (0.2-1.0) mg/dL AST (13-39) U/L ALT (7-52) U/L Alkaline Phosphatase (34-104) U/L C-Reactive Protein (<8.01) mg/L Total Protein (6.4-8.9) g/dL Albumin (3.2-5.2) g/dL Globulin (2-4) g/dL Albumin/Globulin Ratio (1-3) Lipase (11.0-82.0) U/L Beta HCG, Quant mIU/mL Urine Color Yellow Urine Appearance Cloudy Urine pH 5.0 (5-9) Ur Specific [place] 1.008 L (1.010-1.030) Urine Protein Negative (Negative) Urine Ketones Negative (Negative) Urine Blood Negative (Negative) Urine Nitrate Negative (Negative) Urine Bilirubin Negative (Negative) Urine Urobilinogen Negative (Negative) Ur Leukocyte Esterase Trace A (Negative) Urine WBC (Auto) Trace(0-5/hpf) (Absent) Urine RBC (Auto) Trace(0-2/hpf) (Absent) Ur Squamous Epith Cells Present A (Absent) Urine Bacteria Absent (Absent) Urine Glucose Negative (Negative) Result Diagrams: 08/02/18 18:10 08/02/18 18:10 Lab Statement: Any lab studies that have been ordered have been reviewed, and results considered in the medical decision making process. - CT No standard instances CT Interpretation Completed By: Radiologist Summary of CT Findings: EXAM: CT Abdomen and Pelvis With Contrast. EXAM DATE/ TIME: 08/02/2018 10:29 PM. CLINICAL HISTORY: 48 years old, female; Abdominal pain; Generalized; Additional info: Rlq pain,. R/O appy. TECHNIQUE: Imaging protocol: Axial computed tomography images of the abdomen and pelvis. with intravenous contrast. Coronal and sagittal reformatted images were created. and reviewed. Radiation optimization: All CT scans at this facility use at least one of. these dose optimization techniques: automated exposure control; mA and/or kV. adjustment per patient size (includes targeted exams where dose is matched to. clinical indication); or iterative reconstruction. Contrast material: OMNI 300; Contrast volume: 80 ml; Contrast route: IV;. COMPARISON: TRANS US TRANSVAGINAL 01/13/2018 8:51 AM. FINDINGS: Lungs: No acute findings in visualized lung bases. ABDOMEN: Liver: There is a diffuse decrease in hepatic parenchymal density, consistent. with fatty infiltration. No intrahepatic biliary dilatation. Gallbladder and bile ducts: See Liver Finding. Pancreas: Unremarkable. No ductal dilation. Spleen: Unremarkable. No splenomegaly. Adrenals: Unremarkable. No mass. Kidneys and ureters: No mass or hydronephrosis. Stomach and bowel: Diverticula in the distal colon. No evidence of. diverticulitis. No bowel obstruction. Appendix: The appendix is at the upper limits of normal in size measuring 6 mm. in diameter with mild periappendiceal fat stranding. The appendix is retrocecal. in location with tip adjacent to the inferior margin of the liver. No. perforation or abscess. PELVIS: Bladder: The urinary bladder is decompressed but contains no calcified stones. Reproductive: Low density material fills the endometrial canal. Correlate with. patient's menstrual cycle. 9 mm low density focus in the lower uterine segment. near the cervix, possibly prominent nabothian cyst seen on prior pelvic. ultrasound., Best seen on sagittal image 602 image 58. ABDOMEN and PELVIS: Intraperitoneal space: No free air of significant free fluid. Bones/joints: No acute fracture or dislocation. Soft tissues: Unremarkable. Vasculature: No abdominal aortic aneurysm. Lymph nodes: No enlarged lymph nodes. IMPRESSION: 1. Retrocecal appendix, at the upper limits of normal in size measuring 6 mm,. with mild periappendiceal fat stranding. These findings could represent early. appendicitis. No perforation or abscess. 2. Diverticulosis coli. No diverticulitis. 3. Low density material in the endometrial canal. Correlate with patient's. menstrual cycle. Abdominal Pain Fem Course/Dx - Course Course Of Treatment: 48-year-old female presents with complaints of lower mid abdominal and right lower quadrant "burning" for the past 2 days. States she was seen by her primary care provider earlier today who recommended that she be seen in the emergency room for further evaluation. Describes pain as constant. Denies aggravating or alleviating factors. Associated with some mild nausea. She reports she had surgery for a cyst removal from her uterus in January 2018 and had some similar discomfort following that surgery. States she has an appointment with her FISH AND WILDLIFE TECHNICIAN next week for follow-up. Patient also notes some dysuria, frequency, and urgency. States has not had her period since her surgery in January. Denies fever, chills, vomiting, diarrhea, vaginal discharge , or dyspareunia. Afebrile. Mildly hypertensive otherwise vitals stable. Patient had some mild tenderness to her suprapubic and right lower quadrant abdomen without guarding or rebound. Remainder of exam was unremarkable. Labs showed a normal white count, normal CRP, electrolytes within normal limits, normal lipase, and normal liver enzymes. Serum was normal. UA showed trace leukocyte esterase. I reviewed the findings with the patient and discussed with her that based on her exam and lab work had a very low suspicion for appendicitis although I could not fully ruled this out at this time. Offered watchful waiting versus obtaining a CT to rule out the appendicitis the patient elected to have the CT at this time. CT showed retrocecal appendix measuring 6 mm with mild periappendiceal fat stranding that could represent an early appendicitis. The findings were discussed with the patient. I discussed the case with , general surgery who is recommending admission with IV antibiotics. He will see the patient in the morning and evaluate for surgery. Patient was made aware of this plan and is agreeable to it. - Diagnoses Differential Diagnosis: Positive: Appendicitis, Pelvic Inflammatory Disease, , Renal Colic, Urinary Tract Infection, Other - Ovarian cyst Provider Diagnoses: Appendicitis Discharge - Sign-Out/Discharge Documenting (check all that apply): Patient Departure Patient Received Moderate/Deep Sedation with Procedure: No - Discharge Plan Condition: Stable Disposition: ADMITTED TO [facility] Referrals: Mari Ji MD [Primary Care Provider] - - Billing Disposition and Condition Condition: STABLE Disposition: Admitted to [facility]
[2018-08-02] MEDS ORDERED: NS 0.9% 1000 ML** 1,000 ML IV ONE (20:16)
[2018-08-02] MEDS ORDERED: Iohexol 300* (CONTRAST) 10 ML SDV IV ONE (22:09)
[2018-08-03] MEDS ORDERED: HYDROmorphone INJ1* 1 MG/ML SYRINGE IV SLOW PU PRN (00:10)
[2018-08-03] MEDS ORDERED: Lactated Ringers 1000 ML Bag* 1,000 ML IV SCH ×2 (01:00→12:00)
[2018-08-03] MEDS ORDERED: ZOSYN 3.375 GM x ONE DOSE over 30 miuntes IVPB ×2 (01:00)
[2018-08-03] MEDS ORDERED: NS 0.9% 1000 ML** 1,000 ML IV SCH (02:15)
[2018-08-03] MEDS: Ondansetron INJ* 2 MG/ML VIAL IV PRN ×2 (02:18→07:37)
[2018-08-03] MEDS: Piperacillin/Tazobac ADVAN(*) 3.375 GM in NS 0.9% 100 ML* 100 ML IVPB SCH ×2 (05:47→13:27)
[2018-08-03] MEDS ORDERED: fentaNYL* 50 MCG/ML 2 ML VIAL (100 MCG VIAL) ONE ×2 (10:18→12:58)
[2018-08-03] MEDS ORDERED: Midazolam* 1 MG/ML 2 ML VIAL (2 MG) ONE (10:18)
[2018-08-03] MEDS ORDERED: Bupivacaine 0.25% W/EPI* 10 ML SDV ONE (10:36)
[2018-08-03] MEDS ORDERED: Famotidine IV* 10 MG/ML 2 ML (20 mg) ONE (10:56)
[2018-08-03] MEDS ORDERED: Dexamethasone IV* 4 MG/ML 1 ML (4 MG) ONE (11:04)
[2018-08-03] MEDS ORDERED: Succinylcholine* 20 MG/ML 10 ML VIAL ONE (11:04)
[2018-08-03] MEDS ORDERED: Propofol* 10 MG/ML 20 ML BTL ONE (11:04)
[2018-08-03] MEDS ORDERED: Cisatracurium* 2 MG/ML MDV 5 ML ONE (11:07)
[2018-08-03] MEDS ORDERED: Naloxone* 0.4 MG/ML 1 ML VIAL IV PRN (11:27)
[2018-08-03] MEDS ORDERED: HYDROcodone/ACETAMIN 5-325 MG* 1 TAB PO PRN ×2 (11:27)
[2018-08-03] MEDS ORDERED: DiMENhydriNATE IV* 50 MG/ML VIAL IV PUSH PRN (11:27)
[2018-08-03] MEDS ORDERED: Ondansetron INJ* 2 MG/ML VIAL IV PRN (11:27)
[2018-08-03] MEDS ORDERED: fentaNYL* 50 MCG/ML 2 ML VIAL (100 MCG VIAL) IV PRN (11:27)
[2018-08-03] MEDS ORDERED: diPHENhydraMINE IV* 50 MG/ML 1 ml VIAL (BENADRYL) IV PRN (11:27)
[2018-08-03] MEDS ORDERED: Acetaminophen TAB* 325 MG PO PRN (11:27)
[2018-08-03] MEDS ORDERED: PROCHLORPERAZINE INJ 5 MG/ML 2 ML VIAL IV PRN (11:27)
[2018-08-03] MEDS ORDERED: Metoprolol Tartrate IV* 1 MG/ML 5 ML VIAL ONE (11:34)
--- NOTE | 2018-08-03 11:38 | HP ---
CC: Primary care doctor; [facility] * HISTORY AND PHYSICAL: DATE OF ADMISSION: 08/03/18 HISTORY OF PRESENT ILLNESS: I was contacted in the overnight period by the emergency room with regard to Ms. Patel, a 48-year-old female, who presented to her primary care doctor's office with complaints of abdominal pain and was felt to have a concern for appendicitis, who was sent to the emergency room where her workup included a CAT scan, which was suggestive of a retrocecal appendicitis. I admitted the patient to my service in the overnight period and started her on antibiotics and IV fluids. I see her this morning, she states she is doing better. She does have some pain and some difficult time taking deep breaths. The patient describes onset of symptoms for 2 days, mostly in the upper abdomen and periumbilical region. It was accompanied with decreased appetite, but no nausea or vomiting, no fevers or chills. Pain is relieved with narcotics and rest. No aggravating factors. PAST MEDICAL HISTORY: Hypertension. The patient does not take medications at this time, but according to the nursing staff she was prescribed an antihypertensive that she has not filled yet through her primary care doctor. PAST SURGICAL HISTORY: Uterine cyst removed vaginally. No abdominal surgeries. MEDICATIONS: As described, she is currently not taking any, but is prescribed. ALLERGIES: No known drug allergies. FAMILY HISTORY: Noncontributory. SOCIAL HISTORY: She lives with her , nonsmoker, nondrinker. REVIEW OF SYSTEMS: No fevers or chills. Decreased appetite. No significant weight loss or weight gain. No shortness of breath, but with some pain on deep inspiration at the lower abdomen. No dysuria. No constipation. No metabolic disorders. No bleeding or clotting disorders. Last menstrual period in October of last year. Perimenopausal. PHYSICAL EXAMINATION GENERAL: She is afebrile. Alert and oriented x3, in no apparent distress. VITAL SIGNS: Stable. HEAD, EYES, EARS, NOSE, THROAT: Normocephalic, atraumatic. Sclerae anicteric. Mucous membranes are moist. NECK: No lymphadenopathy. LUNGS: Clear to auscultation bilaterally. ABDOMEN: Soft, nondistended. Tender in the right lower quadrant without rebound. No masses or hernias noted. No scars. No CVA tenderness. RECTAL: Exam not performed. EXTREMITIES: Within normal limits. DIAGNOSTIC STUDIES/LAB DATA: Labs reviewed and showed normal white count. Urinalysis normal. Chemistry panel normal. Beta-HCG negative. Lipase within normal limits. CT scan of the abdomen and pelvis reviewed. This is with p.o. contrast. It extends to the cecum, but we do not see any into the retrocecal appendix, which is mildly dilated with some inflammatory changes. Other finding of diverticulosis without diverticulitis. IMPRESSION AND PLAN: Early appendicitis, retrocecal, in a patient who certainly has been having pain and has an exam consistent with persistent pain, who I believe would benefit from laparoscopic appendectomy. We discussed the possible alternatives of antibiotics and watchful waiting, but my recommendation given his retrocecal location would be to operate now to prevent complications down the road. I described this with the patient. She agreed to proceed. We spoke of the possible complications, which included not limited to bleeding, infection, leak, need for additional surgeries, abscess formation, injury to adjacent organs. The patient wishes to proceed and will be scheduled. She is maintained on n.p.o. status and she is on antibiotics. [id number]/[facility] #: [id number] [facility]
[2018-08-03] MEDS ORDERED: Ketorolac INJ* 30 MG/ML 1 ML VIAL ONE (11:41)
[2018-08-03] MEDS ORDERED: Lidocaine 2% PF * 5 ML VIAL ONE (11:44)
--- NOTE | 2018-08-03 11:56 | BRIEFOPN ---
Brief Operative Note - Surgery Procedures: Pre-OP Diagnoses: acute appendicitis Post-op Diagnosis: same Procedure: Laparoscopic appendectomy Surgeon: Chacha Asst: none Anethesia: CAROLINEA EBL: minimal IVF: crystalloid Specimen: appendix Drains: none
[2018-08-03] MEDS ORDERED: Glycopyrrolate IV* 0.2 MG/ML 1 ML VIAL ONE (12:06)
[2018-08-03] MEDS ORDERED: Neostigmine Methylsulfate* 1 MG/ML 10 ML VIAL (1 mg/ml) ONE (12:06)
--- NOTE | 2018-08-03 12:46 | OP ---
CC: Dr. Mari Ji * DATE OF OPERATION: 08/03/18 - ROOM #331 DATE OF : 72 SURGEON: Donis Burnham MD ROOFER: PAOLO Carlos student. ANESTHESIOLOGIST: Dr. Mario. ANESTHESIA: General anesthesia. PRE-OP DIAGNOSIS: Acute appendicitis. POST-OP DIAGNOSIS: Acute appendicitis. OPERATIVE PROCEDURE: Laparoscopic appendectomy. ESTIMATED BLOOD LOSS: Minimal blood loss. FLUIDS: Minimal crystalloid fluid given. SPECIMEN: Appendix. DESCRIPTION OF PROCEDURE: The patient was identified in the preoperative area, brought to the OR, placed on the operating table in supine position. The patient already had preoperative antibiotics. Sequential devices were placed on bilateral lower extremities and general anesthesia was induced. The patient' s abdomen was prepped and draped in standard surgical fashion and a time-out was performed. An umbilical incision was made. This skin was elevated and a Veress needle inserted into the abdominal cavity, which was then allowed to insufflate to a pressure of 15 mmHg. The patient tolerated the insufflation well. A 12-mm optical trocar was then placed in the right upper quadrant. Laparoscope was inserted through this. There was no evidence of injury from trocar insertion or from the Veress needle, which was then removed. A 5-mm trocar was replaced at this site of the umbilicus and another 5-mm in the suprapubic area. Table was positioned to right side up and small bowel was moved out of the way and cecum was identified. This was rotated medially and an appendix that was mildly dilated was identified. The lateral attachments were taken with cautery. We made a window through the base of the appendix through healthy tissue and fired a 30-mm gerard GUILLAUME stapling device across this. The mesentery was taken with a 45-mm rausch GI stapling device. Appendix was then placed in an endoscopic retrieval bag and brought out through the right upper quadrant port site. Review of the staple line showed no bleeding, no enteric contents. There was no free fluid in the abdomen and the bowel appeared normal. The abdomen was allowed to collapse. Trocars were removed under direct vision and all three skin incisions were reapproximated with 4-0 Monocryl subcuticular sutures followed by sterile dressing. [id number]/[facility] #: [id number] [facility]
[2018-08-03] MEDS ORDERED: Ondansetron INJ* 2 MG/ML VIAL ONE (13:00)
--- NOTE | 2018-08-03 13:02 | DS ---
CC: Dr. Mari Ji; [facility]* DISCHARGE SUMMARY: DATE OF ADMISSION: 08/02/18. DATE OF DISCHARGE: 08/03/18. HOSPITAL COURSE: Ms. Patel was admitted overnight with acute appendicitis, taken to the operating room on hospital day #1 and underwent laparoscopic appendectomy. Please see operative report for details, uneventful. The patient was planned for discharge home in stable condition. The patient did have mildly elevated blood pressures during her ER visit and was prescribed antihypertensive by her primary care doctor, which she has not picked up yet. My hope is that she will follow up with her primary care doctor to look into this. Upon discharge, her blood pressure was normal. [id number]/[facility] #: [id number] JENNIE
[2018-08-03] MEDS ORDERED: DiMENhydriNATE IV* 50 MG/ML VIAL ONE (13:20)
[2018-08-03] MEDS ORDERED: PROCHLORPERAZINE INJ 5 MG/ML 2 ML VIAL ONE (13:58)
[2018-08-03 16:33] VITALS: BP 157/99
== END 2018-08-03 16:30 | disposition home or self-care (01) ==
LOC: ED 15:54 → SSU 08-03 00:10 → INTOOBSV 08-03 00:10
PROVIDERS: ADMIT Surgery; ATTEND Surgery
DX: K35.80 Unspecified acute appendicitis (principal); R10.9 Unspecified abdominal pain; I10 Essential (primary) hypertension; K21.9 Gastro-esophageal reflux disease without esophagitis; R11.0 Nausea
CPT/HCPCS: 36415; 74177; 80053; 81003; 81015; 83605; 83690; 84702; 85025; 86140; 88304; 96374; 96375; 99284; G0378; J0330; J0780; J1100; J1240; J1885; J2250; J2405; J2543; J2704; J2710; J3010; J3490; Q9967